=== PATIENT | male | born 1950 | race Caucasian/White ===

== ENCOUNTER 2022-03-05 06:22 | Day surgery (SDC) | payer MEDICARE, BC ==
[~2022-03-05] VITALS: Ht 170.2 cm; Wt 108.8 kg
[2022-03-05] VITALS (11 sets, daily range): BP systolic 113–158; BP diastolic 48–63
[2022-03-05] MEDS ORDERED: normal saline 1,000 ML IV SCH (06:40)
[2022-03-05] MEDS ORDERED: diphenhydrAMINE 25mg capsule PO PRN (06:40)
[2022-03-05] MEDS ORDERED: LEVO5TAB13 PO (07:00)
[2022-03-05] MEDS ORDERED: VITA-268 PO (07:00)
[2022-03-05] MEDS ORDERED: ROSU10TA2 PO (07:00)
[2022-03-05] MEDS ORDERED: HYDR-3972 PO (07:00)
[2022-03-05] MEDS ORDERED: LOSA50TA64 PO (07:00)
[2022-03-05] MEDS ORDERED: ASPI-611 PO (07:00)
[2022-03-05] MEDS ORDERED: AMLO5TAB PO (07:00)
[2022-03-05] MEDS ORDERED: CHOL50004 PO (07:00)
[2022-03-05] MEDS ORDERED: METF-438 PO (07:00)
[2022-03-05] MEDS ORDERED: NITR0.4T51 SL (07:00)
[2022-03-05] MEDS ORDERED: CITA10TA93 PO (07:00)
[2022-03-05 07:23] LABS: BASOPHILS # (AUTO) 0.1 X10'3 (0-0.2); BASOPHILS % (AUTO) 1.2 % (0-1); EOSINOPHILS # (AUTO) 0.4 X10'3 (0-0.9); EOSINOPHILS % (AUTO) 3.8 % (0-6); HEMATOCRIT 43.3 % (42.0-52.0); HEMOGLOBIN 14.4 g/dl (14.0-17.9); LYMPHOCYTES % (AUTO) 20.7 % (21-51); MEAN CORPUSCULAR HEMOGLOBIN 26.9 PG (27.0-31.0); MEAN CORPUSCULAR HGB CONC 33.3 g/dL (33.0-36.5); MEAN CORPUSCULAR VOLUME 80.8 FL (78-98); MEAN PLATELET VOLUME 8.2 FL (7.4-10.4); MONOCYTES # (AUTO) 0.9 X10'3 (0-0.9); MONOCYTES % (AUTO) 8.9 % (2-12); NEUTROPHILS # (AUTO) 6.4 X10'3 (1.8-7.7); NEUTROPHILS % (AUTO) 65.4 % (42-75); PLATELET COUNT 223 X10'3 (140-440); RED BLOOD COUNT 5.36 X10'6 (4.70-6.10); RED CELL DISTRIBUTION WIDTH 14.6 % (11.5-14.5); WHITE BLOOD COUNT 9.8 X10'3 (4.5-11.0)
[2022-03-05 07:32] LABS: ALBUMIN 4.3 G/DL (3.4-5.0); ANION GAP 9 (8-16); BLOOD UREA NITROGEN 18 MG/DL (7-18); BUN/CREATININE RATIO 17.3 (5.4-32.0); CALCIUM 9.1 MG/DL (8.5-10.1); CHLORIDE 103 MMOL/L (99-107); CREATININE 1.04 MG/DL (0.60-1.10); GLUCOSE 170 MG/DL (70-104); POTASSIUM 4.2 MMOL/L (3.5-5.1); SODIUM 140 MMOL/L (135-145); TOTAL CARBON DIOXIDE 27.8 MMOL/L (24-32); eGFR 70 ML/MIN
[2022-03-05] MEDS ORDERED: midazolam 1 mg/ML 2ml injection ONE ×2 (08:41→09:35)
[2022-03-05] MEDS ORDERED: fentaNYL/PF 50MCG/1 ML 2ML syringe ONE (08:41)
[2022-03-05] MEDS ORDERED: LIDOcaine 1% 30ml preserv. free vial ONE (08:42)
[2022-03-05] MEDS ORDERED: iohexol 350MG/ML 100ml bottle IV ONE ×3 (08:42→10:04)
[2022-03-05] MEDS ORDERED: heparin 1,000unit/ml 10ml vial 10 ML ONE (08:42)
[2022-03-05] MEDS ORDERED: ticagrelor 90mg tablet ONE (10:23)
[2022-03-05] MEDS ORDERED: HYDROcodone/acetaminophen 10/325mg tab PO PRN (11:15)
[2022-03-05] MEDS ORDERED: normal saline 1000ml 1,000 ML IV SCH (11:15)
[2022-03-05] MEDS ORDERED: ondansetron/PF 4mg/2ml inj IV PRN (11:15)
[2022-03-05] MEDS ORDERED: proCHLORperazine 10 MG/2 ml inj IV PRN (11:15)
[2022-03-05] MEDS ORDERED: HYDROcodone/acetaminophen 5mg/325mg tablet PO PRN (11:15)
--- NOTE | 2022-03-05 13:07 | NUR ---
Pt returned with prescription for Brillinta from pharmacy. 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 Risks reviewed of doing so, and they stated they understood.
== END 2022-03-05 15:10 | disposition home or self-care (01) ==
LOC: SSTAY O 06:22
PROVIDERS: ATTEND Internal Medicine Cardiovascular Disease
DX: R94.39 Abnormal result of other cardiovascular function study (principal); I25.10 Atherosclerotic heart disease of native coronary artery without angina pectoris; I10 Essential (primary) hypertension; E78.5 Hyperlipidemia, unspecified; Z87.891 Personal history of nicotine dependence; Z79.899 Other long term (current) drug therapy; Z98.890 Other specified postprocedural states
CPT/HCPCS: 36415; 80048; 82948; 83735; 85025; 85610; 93005; 93459; 93567; 99152; 99153; C1751; C1760; C1769; C1874; C1894; C9604; J1644; J2250; J3010; J3490; J7030; Q0163; Q9967; A4620; A5120; A6258